=== PATIENT | male | born 1970 | race Caucasian/White ===

== ENCOUNTER 2024-05-31 18:31 | Emergency (ER) | payer BC ==
[~2024-05-31] VITALS: Ht 175.3 cm; Wt 73.5 kg
[2024-05-31] MEDS ORDERED: LEXAPRO10 MG PO (20:08)
[2024-05-31] MEDS ORDERED: ACETAMINOPHEN 500 MG TAB PO ONE (20:50)
[2024-05-31] MEDS ORDERED: traMADol HCL 50 MG/TAB PO ONE (20:50)
[2024-05-31] MEDS ORDERED: TRAMADOL HYDROC50 M1 PO (21:36)
[2024-05-31] MEDS ORDERED: MOTRIN800 MG PO (21:36)
[2024-05-31 21:54] VITALS: BP 135/79
== END 2024-05-31 21:54 | disposition home or self-care (01) | DRG 563 ==
LOC: ED 18:31
DX: S42.101A Fracture of unspecified part of scapula, right shoulder, initial encounter for closed fracture (principal); V86.56XA Driver of dirt bike or motor/cross bike injured in nontraffic accident, initial encounter